=== PATIENT | female | born 1965 | race Caucasian/White ===

== ENCOUNTER → 2021-02-14 | Outpatient (CLI) | payer BC, OTHER ==
[~2021-02-14] MED LIST: LEVO50TA5 PO; MULT-496 PO
[2021-02-14 15:36] LABS: BASO # 0.1 x10^3/uL (0.0-0.2); BASO % 1 % (0-3); EOS # 0.3 x10^3/uL (0.0-0.7); EOS % 3 % (0-3); HEMATOCRIT 37.9 % (36.0-47.0); HEMOGLOBIN 12.3 g/dL (12.0-15.5); LYMPH # 2.4 x10^3/uL (1.0-4.8); LYMPH % 28 % (24-48); MEAN CORPUSCULAR HEMOGLOBIN 28 pg (25-35); MEAN CORPUSCULAR HGB CONC 32 g/dL (31-37); MEAN CORPUSCULAR VOLUME 87 fL (79-100); MONO # 0.8 x10^3/uL (0.0-1.1); MONO % 9 % (0-9); NEUT % 59 % (31-73); PLATELET COUNT 329 x10^3/uL (140-400); RED BLOOD COUNT 4.37 x10^6/uL (3.50-5.40); RED CELL DISTRIBUTION WIDTH 14.8 % (11.5-14.5); WHITE BLOOD COUNT 8.6 x10^3/uL (4.0-11.0)
--- NOTE | 2021-02-14 15:41 | EKG ---
[facility] [address] [place] [address] Test Date: 2021-02-14 Test Time: 15:40:39 Pat Name: CONSTANTIN RIVAS Department: Room: Gender: F Blocking Machine Tender: JJB : 1965 Requested By: BASILIA AUGUSTE Order Number: [id number] Reading MD: Zachary Richter Measurements Intervals [place] Rate: 71 P: 27 FL: 132 QRS: 9 QRSD: 92 T: 43 QT: 398 QTc: 433 Interpretive Statements SINUS RHYTHM NON SPECIFIC ST-T WAVE CHANGES Electronically Signed On 02-14-2021 16:23:12 PODODERMATOLOGIST by Zachary Richter
[2021-02-14 15:50] LABS: BILIRUBIN,URINE NEGATIVE (NEG); CLARITY,URINE CLEAR; COLOR,URINE YELLOW; NITRITE,URINE NEGATIVE (NEG); PROTEIN,URINE NEGATIVE (NEG-TRACE); UROBILINOGEN,URINE 0.2 mg/dL (0.2 mg/dL)
[2021-02-14 15:59] LABS: BACTERIA,URINE 0 /HPF (0-FEW); RBC,URINE OCC /HPF (0-2)
[2021-02-14 16:09] LABS: ALBUMIN 3.6 g/dL (3.4-5.0); ALBUMIN/GLOBULIN RATIO 0.9 (1.0-1.7); CALCIUM 8.6 mg/dL (8.5-10.1); CREATININE 0.7 mg/dL (0.6-1.0); GFR 87.2; POTASSIUM 3.4 mmol/L (3.5-5.1); TOTAL BILIRUBIN 0.3 mg/dL (0.2-1.0); TOTAL PROTEIN 7.4 g/dL (6.4-8.2)
--- NOTE | 2021-02-14 20:39 | RAD ---
EXAM: PA and Lateral Views of the Chest DATE: 02/14/2021 3:21 PM INDICATION: Reason: PRE-OP HYSTERECTOMY 02/19. Instructions: / History: COMPARISON: No Prior FINDINGS: The heart is not enlarged. Mediastinal and hilar contours are normal. Nodular opacity left upper lung. No pleural effusion or pneumothorax. IMPRESSION: 1. Nodular opacity left upper lung. This can be further assessed by CT. 2. No radiographic evidence for acute cardiopulmonary process. Electronically signed by: Howie Galvan MD (02/14/2021 8:36 PM) EVAN
== END ==
LOC: SURGPAT 15:03
PROVIDERS: ATTEND Obstetrics & Gynecology
DX: Z01.818 Encounter for other preprocedural examination (principal); R91.1 Solitary pulmonary nodule; R94.31 Abnormal electrocardiogram [ECG] [EKG]; E03.9 Hypothyroidism, unspecified
CPT/HCPCS: 36415; 71046; 80053; 81001; 85025; 87086; 93005

== ENCOUNTER 2021-02-19 05:57 | Observation (INO) | payer BC, OTHER ==
[2021-02-14 15:31] VITALS: BP 188/90
--- NOTE | 2021-02-18 14:30 | NUR ---
DR AUGUSTE AND DR PINEDA REVIEWED CT CHEST FROM 02/18. OKAY TO PROCEED WITH SURGERY 02/19. RIGO FROM DR AUGUSTE'S OFFICE ASKED ME TO NOTIFY THE PATIENT. LEFT A MESSAGE ON PATIENT'S VOICEMAIL THAT SURGERY IS STILL ON FOR 02/19 WITH TIME OF ARRIVAL OF 0600.
[~2021-02-19] VITALS: Ht 172.7 cm; Wt 106.0 kg
[2021-02-19] VITALS (12 sets, daily range): BP systolic 99–136; BP diastolic 50–82
[2021-02-19] MEDS ORDERED: HYDROmorphone 2 MG/ML VIAL IVP PRN (06:00)
[2021-02-19] MEDS ORDERED: IV RINGERS,LACTATED 1000ML 1,000 ML IV SCH (06:00)
[2021-02-19] MEDS ORDERED: PROCHLORPERAZINE 10 MG/2 ML VIAL. IVP PRN (06:00)
[2021-02-19] MEDS ORDERED: fentaNYL PF VIAL 100 MCG/2 ML VIAL IVP PRN ×2 (06:00)
[2021-02-19] MEDS ORDERED: BUPIVACAINE-EPI 0.25% 30 ML VIAL KIT. ONE (07:01)
[2021-02-19] MEDS ORDERED: ESTROGENS, CONJ VAGINAL CREAM 30GM TUBE. ONE (07:01)
[2021-02-19] MEDS ORDERED: DEXAMETHASONE SOD PHOS 4 MG/ML VIAL ONE (07:01)
[2021-02-19] MEDS ORDERED: PROPOFOL 10 MG/ML (20ML) VIAL. IV ONE (07:01)
[2021-02-19] MEDS ORDERED: LIDOCAINE 2% PF 5 ML VIAL. ONE (07:01)
[2021-02-19] MEDS ORDERED: ONDANSETRON PF 4 MG/2 ML VIAL. ONE (07:01)
[2021-02-19] MEDS ORDERED: INDIGOTINDISULFONATE SODIUM 40 MG/5 ML AMPUL. ONE (07:01)
[2021-02-19] MEDS ORDERED: GLYCOPYRROLATE 1 MG/5 ML VIAL. ONE (07:02)
[2021-02-19] MEDS ORDERED: MIDAZOLAM HCL/PF 2 MG/2 ML VIAL. ONE (07:02)
[2021-02-19] MEDS ORDERED: ROCURONIUM 50 MG/5 ML VIAL. ONE (07:02)
[2021-02-19] MEDS ORDERED: NEOSTIGMINE METHYLSULFATE 5 MG/5 ML SYRINGE. ONE (07:02)
[2021-02-19] MEDS ORDERED: fentaNYL PF VIAL 100 MCG/2 ML VIAL ONE ×3 (07:02→08:08)
[2021-02-19] MEDS ORDERED: PHENYLEPHRINE in 0.9% NACL PF 1 MG/10 ML SYRINGE. IV ONE (07:53)
[2021-02-19] MEDS: LEVOTHYROXINE 50 MCG TABLET PO SCH (08:00)
[2021-02-19] MEDS ORDERED: ePHEDrine PF IN SALINE 50 MG/10 ML SYRINGE. IV ONE (08:13)
[2021-02-19] MEDS ORDERED: LACTULOSE 20 GM/30 ML SOLUTION. PO PRN (11:00)
[2021-02-19] MEDS ORDERED: NALOXONE 0.4 MG/ML VIAL. IV PRN (11:00)
[2021-02-19] MEDS ORDERED: MAG HYDROX/ALUMINUM HYD/SIMETH 30 ML ORAL.SUSP PO PRN (11:00)
[2021-02-19] MEDS ORDERED: diphenhydrAMINE HCL 25 MG CAPSULE PO PRN (11:00)
[2021-02-19] MEDS ORDERED: MAGNESIUM HYDROXIDE 2,400 MG/30 ML ORAL.SUSP. PO PRN (11:00)
[2021-02-19] MEDS ORDERED: ZOLPIDEM 5 MG TABLET. PO PRN (11:00)
[2021-02-19] MEDS ORDERED: 0.9 % SODIUM CHLORIDE 10 ML DISP.SYRIN. IV PRN (11:00)
[2021-02-19] MEDS ORDERED: MORPHINE SULFATE 2 MG/ML INJ. IV PRN (11:00)
[2021-02-19] MEDS ORDERED: CALCIUM CARBONATE 500 MG TAB.CHEW PO PRN (11:00)
[2021-02-19] MEDS ORDERED: ONDANSETRON PF 4 MG/2 ML VIAL. IV PRN (11:00)
[2021-02-19] MEDS ORDERED: HYDROcodone/APAP 5/325MG 1 TAB TABLET PO PRN (11:00)
[2021-02-19] MEDS ORDERED: SIMETHICONE 80 MG TAB.CHEW PO PRN (11:00)
[2021-02-19] MEDS ORDERED: diphenhydrAMINE 50 MG/ML VIAL IV PRN (11:00)
--- NOTE | 2021-02-19 11:00 | PDOC4 ---
BRIEF OPERATIVE NOTE Date: Feb 19, 2021 Pre-Op Diagnosis PMB with enlarged fibroid uterus Post-Op Diagnosis same Procedure Performed LAVH/LSO/lysis of adhesions Surgeon Dr. Jennifer Busch Lock Master ZEB Ma Anesthesiologist Dr. Gallo Anesthesia Type: General Blood Loss 300cc IV Fluid 1100cc Urine Output 600cc clear via james Specimens Obtained cervix, left tube and ovary and uterus in pieces Findings omental adhesions to anterior abdominal wall under umbilicus, very enlarged fibroid uterus, normal left tube and ovary, no enlargement/cyst of right ovary but very stuck to sidewall over ureter, normal appendix Complications none Operative Note [id number] JENNIFER BUSCH MD Feb 19, 2021 11:00
[2021-02-19] MEDS ORDERED: MORPHINE SULFATE 2 MG/ML INJ. ONE (11:07)
[2021-02-19] MEDS: MORPHINE SULFATE 2 MG/ML INJ. IVP PRN ×2 (11:11→11:35)
--- NOTE | 2021-02-19 11:46 | NUR ---
The patient, CONSTANTIN RIVAS, 55 y/o, F admitted by BASILIA AUGUSTE MD on [facility] unit at 1146, transported via bed. Pt. was given written information regarding hospital policies, unit procedures and contact persons. VSS, states pain is a 2. Valuables were checked and pt. questions answered at this time. Pt. asks for assistance to RR at this time and RN assists to bathroom. Pt. voids well and tolerates well. Slightly dizzy and stumbles RN asks for 2nd standby for return to bed. Frequent VS initiated.
--- NOTE | 2021-02-19 13:08 | OP ---
DATE OF SURGERY: 02/19/2021 PREOPERATIVE DIAGNOSES: Postmenopausal bleeding with an enlarged fibroid uterus. POSTOPERATIVE DIAGNOSES: Postmenopausal bleeding with an enlarged fibroid uterus. PROCEDURE: Laparoscopic-assisted vaginal hysterectomy, left salpingo-oophorectomy and lysis of adhesions. SURGEON: Jennifer Busch MD. FOOD SERVICE CLERK: ZEB Ma. ANESTHESIOLOGIST: Dr. Gallo. ANESTHESIA: General. BLOOD LOSS: 300 mL. URINE OUTPUT: 600 mL clear via Bruno catheter. IV FLUIDS: 1100 mL of crystalloid. SPECIMENS: Cervix, uterus in pieces. Left tube and ovary. FINDINGS: She had omental adhesions to the anterior abdominal wall under the umbilicus. She had a very enlarged uterus, bladder adhesions. Left tube and ovary were free. Right ovary was without lesions or cyst and was not enlarged and looked normal, but the right tube and ovary were significantly adhesed to the right pelvic sidewall over the ureter area. The right appendix was seen and was normal and there were more left upper quadrant adhesions that were left alone and I did see the edge of the liver, but that was it. COMPLICATIONS: None. DESCRIPTION OF PROCEDURE: This patient was taken to the operating room where general anesthesia was placed. The patient was placed in dorsal lithotomy position in [facility]. The patient's abdomen and vagina were both prepped and draped in the normal sterile fashion and a Bruno catheter had been inserted under sterile technique. Upon my arrival, a timeout was performed. Once everyone agreed on the patient, the site, the procedure, the antibiotics, the procedure was initiated. A bivalve speculum was placed in the patient's vagina. A single-tooth tenaculum was used to grasp the anterior lip of the cervix, 10 mL of 0.25% Marcaine with epinephrine was used to circumferentially inject around the cervix for both hemodissection and hemostatic purposes later. The Valtchev uterine manipulator was placed through the endocervical os, locked on the single tooth tenaculum and the bivalve speculum was then removed. Top gloves were discarded and changed. Attention was then turned to the abdomen where a supraumbilical skin incision was made with the scalpel, a curved Denise was used to dissect through the subcuticular layer to the fascia. The 5 mm Visiport was used to directly enter the abdominal cavity. Opening patient pressure was 5 mmHg. Carbon dioxide gas was used to then appropriately insufflate the abdominal cavity to maintain a pressure of 15 mmHg. The patient was placed in Trendelenburg and overhead lights were dimmed. Direct abdominal placement had been confirmed via the laparoscope. Right and left lower quadrant ports were placed under direct visualization after transilluminating the abdominal wall, injecting local, making a small incision and placing the 5 mm atraumatic trocar and under direct visualization, 4-5 mL of air was placed in the Cook trocar cuff. The camera was moved laterally to look at the umbilical port. It was actually above the umbilicus and it was just free of all of the adhesions. The adhesions started below the umbilicus. This trocar thankfully was above, so we were out of all of the omental adhesions. I did look at it from both sides. It did appear to be just omentum, so I started in the clear areas using the monopolar hook to take it down and gently pull it and then cauterizing and cutting with the LigaSure the remaining little bit of omentum. The omentum was removed from the anterior abdominal wall. The lysis of adhesions was performed here and then going down and pulling up the left tube and ovary, finding the ureter, coursing on the side wall, which was actually kind of high, but we did identify it well below, the IP pulling this tube and ovary up high, staying right below the ovary, taking the left tube and ovary, crossing the infundibulopelvic ligament, staying right under the ovary and then right on the cornua area, getting the round ligament. The right tube and ovary were identified, but they were stuck and underneath, so initially I got the right round ligament and the right uteroovarian pedicle on the right side and when I got the big uterus out of the way, I go back and look at it some more, but at this point I was just trying to get the blood supply to the uterus and manipulate the uterus better as it was large, so I went through the right round ligament, cauterizing and cutting it and the right uteroovarian pedicle and then creating the bladder flap, pushing the uterus cephalad and going over the bladder what had some significant adhesions from her 2 prior sections and taking it down with the monopolar hook and gently pulling it down with the [place], taking the bladder down. Once the bladder was down, I was able to get the uterine vessels on the right side and staying inside this and posteriorly through the cardinal and broad ligaments down to the level of the uterosacral, then crossing contralaterally, hugging the cervix, staying right inside, the bladder had to be taken down on this side as well. Once it was down, hugging the cervix, getting the uterine vessels and staying inside this pedicle through the cardinal and broad, watching the cervix protruded posteriorly. There were no adhesions posteriorly, just anteriorly where the bladder flap was and the right tube and ovary that were adhesed to the sidewall. So the uterus at this point was completely blanched and free. I did go back and try to look at the tube and ovary and it was pretty stuck still, so I left it alone because it again was not enlarged, not cystic, not abnormal, just stuck, but it was over that ureter and so at this point, all instruments were removed from the abdomen and attention was turned vaginally. The single tooth and Valtchev were removed. Weighted speculum was placed in the patient's vagina. Thyroid Zofia clamps were placed on the anterior and posterior lips of the cervix respectively. A scalpel was used to make a circumferential incision in the cervix. The left and right sides were easily taken up posterior was good. The bladder was adhesed anteriorly so posteriorly, I was able to get in and place a #0 Vicryl suture and secure the posterior peritoneum to the vaginal cuff and tagged with a curved Denise clamp. The short weighted vaginal speculum was removed and replaced with the long weighted Elle speculum in the posterior cul-de-sac. I was actually able to get around on the sides, so I placed curved Robert clamps x 2 on the left uterosacral ligament where they were doubly clamped with curved Heaneys, cut with curved Jain scissors, suture ligated x 2. Second 1 was taken through the vaginal cuff securing uterosacral ligament to the vaginal cuff, tagging it with a straight Denise clamp. This was done exactly the same on the right side, double clamping the uterosacrals with curved Robert's, cutting with curved Jain scissors, suture ligating x 2 with 0 Vicryl, taking the second 1 through the vaginal cuff. Once this was done, the remaining pedicle on the right side was delineated with the curved mixture and the vaginal LigaSure was used to cauterize and cut the remaining pedicle. I was able to get my finger up and around and make sure that bladder was we were in anteriorly which we were, so I was able to get the remaining pedicle on the left side as well. At this point, all the pedicles were obtained, the blood supply was done, so I started morcellating the uterus and taking it out vaginally in pieces, placing towel clips on the posterior uterus and using the scalpel to cut and remove pieces of uterus until finally it was wedged out and the fundus of the uterus did come out. Long Allis was used to grasp the anterior bladder peritoneum. A sponge stick was used to examine all the pedicles. Initially, there was a tiny bit of bleeding at the right cuff. I did grasp this and was able to cauterize that. The left uterosacral tag had come off, the right [address]. There was no active bleeding from any of the pedicles. The long Elle speculum was removed and replaced with the short weighted vaginal speculum so at this point, 2-0 Vicryl was taken through the anterior bladder peritoneum, just inside the left cuff where the uterosacral should have been, posterior peritoneum and right uterosacral ligament, thus closing the peritoneum in a pursestring like fashion. The right uterosacral tag was clipped. The cuff was closed with a full length 2-0 Vicryl in an anterior to posterior running locked fashion and tied to the posterior cuff tag. A sponge stick was used to examine the cuff. It was completely hemostatic, so at this point, all instruments were removed from the vaginal area. All sponge, lap and needle counts were correct x 2 before going above. At this point, all gloves were discarded and changed and attention was turned back above for a second look. Overhead lights were redimmed. The patient was placed back in Trendelenburg. Copious irrigation revealed hemostasis. Tisseel was placed on the cuff; however, it did not initially all spray out correctly, so I just ended up placing some Tushar as well for just assurance but there was no active bleeding. Tushar stayed white and powdery nothing welled up. The gas was released from the 3 trocar sites. The left lower quadrant and right lower quadrant ports were removed under direct visualization. Right and left pericolic gutters were clear. Appendix was normal. Right upper quadrant edge was normal. There was no active bleeding where we took down the adhesions on the anterior abdominal wall. I did look at the ovary again prior to removing the 2 lower quadrant ports and again it looked normal. There was no active bleeding. I did not feel like it was worth removing this for a normal ovary or opening her, especially as I feel like a stent if we were to go in and take it out would be in her best interest as it was over the ureter and we did not have that here, so I did not open her or try removing the normal right tube and ovary as it was adhesed over the right sidewall and ureter area, so she still has her right tube and ovary. Right lower quadrant and left lower quadrant ports were removed under direct visualization, they were hemostatic. Gas was released from that umbilical port. All 3 port sites were closed with 4-0 nylon. At the end, the patient was awakened from anesthesia and has now been brought to recovery room in stable condition. JUDY DR: Agusto TID: [id number]
[2021-02-19] MEDS: oxyCODONE/APAP 5/325 1 TAB TABLET PO PRN ×3 (15:06→22:12)
[2021-02-20 00:49] VITALS: BP 117/54
[2021-02-20] MEDS: oxyCODONE/APAP 5/325 1 TAB TABLET PO PRN ×2 (00:49→05:53)
[2021-02-20 05:53] VITALS: BP 114/58
[2021-02-20] MEDS: LEVOTHYROXINE 50 MCG TABLET PO SCH (06:00)
[2021-02-20 06:06] LABS: CALCIUM 8.3 mg/dL (8.5-10.1); CREATININE 0.6 mg/dL (0.6-1.0); GFR 104.2; POTASSIUM 3.9 mmol/L (3.5-5.1)
--- NOTE | 2021-02-20 08:11 | PDOC ---
SURGICAL PROGRESS NOTE DATE: 02/20/21 TIME: 08:04 Subjective Doing well without complaints. has already eaten, passed gas, voiding without catheter and ambulating well. Vital Signs Vital Signs Date Time Temp Pulse Resp B/P (MAP) Pulse Ox O2 Delivery O2 Flow Rate FiO2 02/20/21 06:25 Room Air 02/20/21 05:53 98.3 64 18 114/58 (76) 95 98.3 02/19/21 11:09 8 I&O l Intake and Output 02/20/21 07:00 Intake Total 1800 ml Output Total 1100 ml Balance 700 ml Intake Oral 500 ml IV Total 1300 ml Output Urine Total 800 ml Estimated Blood Loss 300 ml # Voids 2 PATIENT HAS A HERNANDEZ: No General: Alert, Oriented X3, Cooperative HEENT: Atraumatic Heart: Regular rate Abdomen: Soft, No tenderness, Other (all port sites c/d/i) Extremities: No clubbing, No cyanosis, No edema Skin: No rashes, No breakdown Psych/Mental Status: Mental status NL, Mood NL Labs Laboratory Tests Test 02/19/21 06:22 02/20/21 05:30 Bedside Urine HCG, Qualitative Hcg negative (Negative) Hematocrit 33.3 % (36.0-47.0) Sodium Level 138 mmol/L (136-145) Potassium Level 3.9 mmol/L (3.5-5.1) Chloride Level 104 mmol/L (98-107) Carbon Dioxide Level 29 mmol/L (21-32) Anion Gap 5 (6-14) Blood Urea Nitrogen 13 mg/dL (7-20) Creatinine 0.6 mg/dL (0.6-1.0) Estimated GFR (Cockcroft-Gault) 104.2 Glucose Level 101 mg/dL (70-99) Calcium Level 8.3 mg/dL (8.5-10.1) Laboratory Tests Test 02/20/21 05:30 Hematocrit 33.3 % (36.0-47.0) Sodium Level 138 mmol/L (136-145) Potassium Level 3.9 mmol/L (3.5-5.1) Chloride Level 104 mmol/L (98-107) Carbon Dioxide Level 29 mmol/L (21-32) Anion Gap 5 (6-14) Blood Urea Nitrogen 13 mg/dL (7-20) Creatinine 0.6 mg/dL (0.6-1.0) Estimated GFR (Cockcroft-Gault) 104.2 Glucose Level 101 mg/dL (70-99) Calcium Level 8.3 mg/dL (8.5-10.1) I have reviewed the following labs, vitals, nursing Assessment/Plan POD#1 s/p LAVH./LSO/adhesiolysis Routine PO care d/c to home later today NPV x 6 weeks light/limited activity x 2 weeks NO driving on narcotics already has pain meds filled at home OK for otc ibuprofen, prn keep scheduled one week follow up with me call or return sooner for any other questions or concerns not limited to but including pain unrelieved with pain meds, increased or unexplained VB or T>100.4 Justicifation of Admission Dx: Justifications for Admission: Justification of Admission Dx: Yes BASILIA AUGUSTE MD Feb 20, 2021 08:11
--- NOTE | 2021-02-20 08:43 | PDOC3 ---
Discharge Summary Visit Information Date of Admission: Feb 19, 2021 Date of Discharge: Feb 20, 2021 Final Diagnosis enlarged uterus, adhesive disease Brief Hospital Course Allergies Allergies Coded Allergies Type Severity Reaction Last Updated Verified No Known Drug Allergies 02/19/21 No Vital Signs Vital Signs Date Time Temp Pulse Resp B/P (MAP) Pulse Ox O2 Delivery O2 Flow Rate FiO2 02/20/21 08:13 Room Air 02/20/21 05:53 98.3 64 18 114/58 (76) 95 98.3 02/19/21 11:09 8 Lab Results Laboratory Tests Test 02/19/21 06:22 02/20/21 05:30 Bedside Urine HCG, Qualitative Hcg negative (Negative) Hematocrit 33.3 % (36.0-47.0) Sodium Level 138 mmol/L (136-145) Potassium Level 3.9 mmol/L (3.5-5.1) Chloride Level 104 mmol/L (98-107) Carbon Dioxide Level 29 mmol/L (21-32) Anion Gap 5 (6-14) Blood Urea Nitrogen 13 mg/dL (7-20) Creatinine 0.6 mg/dL (0.6-1.0) Estimated GFR (Cockcroft-Gault) 104.2 Glucose Level 101 mg/dL (70-99) Calcium Level 8.3 mg/dL (8.5-10.1) Laboratory Tests Test 02/20/21 05:30 Hematocrit 33.3 % (36.0-47.0) Sodium Level 138 mmol/L (136-145) Potassium Level 3.9 mmol/L (3.5-5.1) Chloride Level 104 mmol/L (98-107) Carbon Dioxide Level 29 mmol/L (21-32) Anion Gap 5 (6-14) Blood Urea Nitrogen 13 mg/dL (7-20) Creatinine 0.6 mg/dL (0.6-1.0) Estimated GFR (Cockcroft-Gault) 104.2 Glucose Level 101 mg/dL (70-99) Calcium Level 8.3 mg/dL (8.5-10.1) Brief Hospital Course Ms. Ortiz is a 55 old female who presented with PMB, enlarged fibroid uterus. She underwent LAVH/LSO and lysis of adhesions yesterday without complication. She has had an unremarkable postoperative course. She is ambulating well, voiding without catheter, tolerating regular diet, scant VB and desiring to go home. Assessment Assessment POD#1 s/p LAVH./LSO/adhesiolysis Routine PO care d/c to home later today NPV x 6 weeks light/limited activity x 2 [address] NO [address] on narcotics already has pain meds filled at home OK for otc ibuprofen, prn keep scheduled one week follow up with me call or return sooner for any other questions or concerns not limited to but including pain unrelieved with pain meds, increased or unexplained VB or T>100.4 Discharge Information Condition at Discharge: Stable Follow Up: Weeks Disposition/Orders: D/C to Home Scheduled Levothyroxine Sodium (Levothyroxine Sodium) 50 Mcg Tablet, 1 TAB PO DAILY for thyroid, #30 Ref 5 (Reported) Entered as Reported by: JOSE FORREST on 02/14/21 1529 Last Taken: Unknown Dose on 02/18/21 Last Action: Continued on 02/19/21732 by BASILIA AUGUSTE Multivitamin (Daily Value) 1 Each Tablet, 1 TAB PO DAILY for vitamin for 30 Days, #30 Ref 0 (Reported) Entered as Reported by: JOSE FORREST on 02/14/21 1530 Last Taken: Unknown Dose on 02/10/21 Last Action: HELD on 02/19/21732 by BASILIA AUGUSTE Patient Instructions Patient Instructions POD#1 s/p LAVH./LSO/adhesiolysis Routine PO care d/c to home later today NPV x 6 weeks light/limited activity x 2 weeks NO driving on narcotics already has pain meds filled at home OK for otc ibuprofen, prn keep scheduled one week follow up with me call or return sooner for any other questions or concerns not limited to but including pain unrelieved with pain meds, increased or unexplained VB or T>100.4 Justicifation of Admission Dx: Justifications for Admission: Justification of Admission Dx: Yes BASILIA AUGUSTE MD Feb 20, 2021 08:43
[2021-02-20 10:00] VITALS: BP 117/62
--- NOTE | 2021-02-20 10:00 | NUR ---
Discharge Note: CONSTANTIN RIVAS Discharge instructions and discharge home medications reviewed with pt and a copy given. All questions have been answered and understanding verbalized. The following instructions and handouts were given: Discontinued IV line. Patient discharged to home.
--- NOTE | 2021-02-20 18:15 | PATHOLOGY ---
[facility] Accession Number: [id number] . 01 Material submitted: . uterus - UTERUS, CERVIX LEFT TUBE AND OVARIES . 01 Clinical history: . FIBROIDS, POST MENOPAUSAL BLEEDING . 02 Diagnosis: Uterus, left fallopian tube and ovary, hysterectomy with left salpingo-oophorectomy: - Adenomyosis, uterine corpus, extensive, with myometrial hypertrophy (uterine weight 216 grams). - Leiomyomas, uterine corpus, measuring up to 1.2 cm in greatest dimension. - Inactive/weakly proliferative endometrium. - Congestion of fallopian tube. - Ovary showing no diagnostic abnormalities. (JPM:ronnie; 02/20/2021) [facility] 02/20/2021 1548 Local . 02 Comment: There is no atypia or evidence of malignancy. (JPM:supervisor dental laboratory; 02/20/2021) . 02 Electronically signed: . Marcelino Alas MD, Pathologist NPI- [id number] . 01 Gross description: . Fixative: Formalin Labeled: Uterus, cervix, left tube and ovary Specimen received: Fragmented/morcellated hysterectomy with attached portion of left ovary and fallopian tube on the uterine fundus and detached fallopian tube fimbriated end Uterus weight: 216 g in aggregate Uterus: 13.5 x 10.2 x 6.2 cm in aggregate Serosa: Bolden-pink with numerous hemorrhagic areas and focal adhesions Ectocervix: Bolden-red and hemorrhagic Cervical os: Slitlike, measuring 1.2 cm Endocervical canal: 2.8 x 1.1 cm Endometrial cavity: Cannot be determined due to the fragmented nature of specimen cm Endometrial thickness: 0.1 cm Myometrial thickness: 2.8 cm in intact areas Lesions/abnormalities: The myometrium appears trabeculated and displays multiple whorled areas possibly consistent with leiomyomata or adenomyosis. Left fallopian tube: 5.3 cm in length, 0.6 cm in diameter when measured in aggregate, with fimbria Left fallopian tube appearance: [place]-bolden and smooth and sectioned to reveal a pinpoint lumen Left ovary: 2 g, 2.1 x 2.0 x 0.9 cm Left ovary appearance: Bolden-white and cerebriform and sectioned to reveal a grossly unremarkable cut surface . Best Worker sections are submitted as follows: A1-A2 12:00 and 6:00 cervix A3-A4 jewelry sales representative endomyometrium A5 left fallopian tube A6 left ovary A7 possible leiomyomata ([facility]; 02/19/2021) SYC/SYC 02/19/2021 1936 Local . 02 Pathologist provided ICD-10: N80.0, D25.9 . 02 CPT . 351088 Specimen Comment: A courtesy copy of this report has been sent to [phone] Specimen Comment: Report sent to Specimen Comment: A duplicate report has been generated due to demographic updates. Performed at: [facility] [address] [facility] [address], [place] [id number] MD Clifford Aguilar MD Phone: [phone] Performed at: 02 [facility] [address] [place], [place] [id number] MD Marcelino Alas MD Phone: [phone]
== END 2021-02-20 10:00 | disposition home or self-care (01) ==
LOC: SURG 05:57 → EDUNIT# 07:30 → 3 NORTH 11:03
PROVIDERS: ADMIT Obstetrics & Gynecology; ATTEND Obstetrics & Gynecology
DX: N85.2 Hypertrophy of uterus (principal); N92.0 Excessive and frequent menstruation with regular cycle; D25.9 Leiomyoma of uterus, unspecified; K66.0 Peritoneal adhesions (postprocedural) (postinfection); Z98.891 History of uterine scar from previous surgery
CPT/HCPCS: 36415; 58552; 80048; 81025; 85014; 86850; 86900; 86901; A4209; A4314; A4930; G0378; G0379; J0690; J1100; J2250; J2270; J2370; J2405; J2704; J2710; J3010; J3490; A4351; A4657